=== PATIENT | male | born 1985 | race African-American/Black ===

== ENCOUNTER 2017-03-08 12:15 | Emergency (ER) | payer SELFPAY ==
[~2017-03-08] VITALS: Ht 172.7 cm; Wt 86.7 kg
[2017-03-08 13:37] LABS: CHLORIDE 106 mEq/L (99-109); SODIUM 139 mEq/L (136-147)
[2017-03-08 13:39] LABS: GLUCOSE 90 mg/dL (70-99)
[2017-03-08 13:40] LABS: ANION GAP 10 MEQ/L (2-14)
[2017-03-08 13:41] LABS: TOTAL BILIRUBIN 0.6 mg/dL (0.0-1.0)
[2017-03-08 13:42] LABS: SERUM ETHYL ALCOHOL < 10 mg/dL
[2017-03-08 13:43] LABS: ALKALINE PHOSPHATASE 72 IU/L (3-129); GFR ESTIMATE (CALCULATED) > 59 mL/min/
[2017-03-08 13:44] LABS: UREA NITROGEN (BUN) 5 mg/dL (9-23)
[2017-03-08 13:51] LABS: HEMATOCRIT 49.7 % (38.0-50.0); MCH 27.3 PG (29.0-34.0); MCHC 31.2 G/DL (30.0-36.0); MCV 87.7 FL (86-99); RBC DIS.WIDTH-CV 13.3 % (11.8-14.6); RBC DIS.WIDTH-SD 43.5 % (39-53); RED BLOOD COUNT 5.67 M/uL (4.00-5.50); WHITE BLOOD COUNT 10.8 K/uL (4.1-10.2)
[2017-03-08 14:05] LABS: ADD MIUA? NO; BILIRUBIN NEGATIVE; BLOOD NEGATIVE; COLOR YELLOW ((YELLOW)); GLUCOSE (STRIP) NEGATIVE; KETONES 5; LEUKOCYTES NEGATIVE; NITRITE NEGATIVE; PROTEIN (STRIP) 30; SPECIFIC GRAVITY 1.016 (1.000-1.030); UROBILINOGEN 0.2 MG/DL (0.2-1.0)
[2017-03-08 14:13] LABS: AMPHETAMINE NEGATIVE (500 ng/mL); COCAINE PRESUMPTIVE POSITIVE (150 ng/mL); METHAMPHETAMINE NEGATIVE (500 ng/mL); OPIATES (MORPHINE) NEGATIVE (100 ng/mL); PHENCYCLIDINE NEGATIVE (25 ng/mL); THC CANNABINOIDS PRESUMPTIVE POSITIVE (50 ng/mL)
[2017-03-08 14:14] LABS: BARBITURATES NEGATIVE (200 ng/mL); BENZODIAZEPINES PRESUMPTIVE POSITIVE (150 ng/mL); INTERNAL CONTROLS VALID? YES; METHADONE NEGATIVE (200 ng/mL); OXYCODONE NEGATIVE (100 ng/mL); PROPOXYPHENE NEGATIVE (300 ng/mL); TRICYCLIC ANTIDEPRESSANTS NEGATIVE (300 ng/mL)
[2017-03-08 14:15] LABS: ADD MEDTOX COMMENT Y
[2017-03-08] MEDS ORDERED: NARCAN4 MG NS (14:19)
[2017-03-08 14:30] LABS: MEAN PLAT.VOLUME 10.7 uM^3 (9.0-12.4); PLAT.SUFFICIENCY ADEQUATE; PLATELET COUNT 244 K/uL (156-360)
[2017-03-08 14:43] LABS: BENZODIAZEPINES, URINE SCREEN POSITIVE (200 ng/mL)
[2017-03-08 15:20] VITALS: BP 127/94
== END 2017-03-08 15:36 | disposition home or self-care (01) ==
LOC: EME 12:15
PROVIDERS: Emergency Medicine
DX: T50.901A Poisoning by unspecified drugs, medicaments and biological substances, accidental (unintentional), initial encounter (principal)
CPT/HCPCS: 80053; 81003; 84999; 85027; 99281; 99284; G0480; J7030

== ENCOUNTER 2017-04-11 20:49 | Emergency (ER) | payer OTHER ==
[~2017-04-11] VITALS: Ht 170.2 cm; Wt 84.6 kg
[~2017-04-11 20:49] MED LIST: NARCAN4 MG NS
[2017-04-12] MEDS ORDERED: VALIUM5 MG PO (00:21)
[2017-04-12] MEDS ORDERED: PERCOCET 5/31 TABLET PO (00:21)
[2017-04-12 00:34] VITALS: BP 132/63
== END 2017-04-12 00:34 | disposition home or self-care (01) ==
LOC: EME 20:49
DX: S39.012A Strain of muscle, fascia and tendon of lower back, initial encounter (principal); X50.9XXA Other and unspecified overexertion or strenuous movements or postures, initial encounter; Y93.H2 Activity, gardening and landscaping; Y99.0 Civilian activity done for income or pay
CPT/HCPCS: 72100; 99281; 99285; J1885

== ENCOUNTER 2017-11-04 12:52 | Emergency (ER) | payer SELFPAY ==
[~2017-11-04] VITALS: Ht 172.7 cm; Wt 84.7 kg
[~2017-11-04 12:52] MED LIST changes: +PERCOCET 5/31 TABLET PO; +VALIUM5 MG PO
[2017-11-04] MEDS ORDERED: ULTRAM50 MG PO (14:38)
[2017-11-04] MEDS ORDERED: PEN-VEE K,VEET500 MG PO (14:38)
[2017-11-04] MEDS ORDERED: MOTRIN800 MG PO (14:38)
[2017-11-04 14:49] VITALS: BP 148/65
== END 2017-11-04 14:50 | disposition home or self-care (01) ==
LOC: EME 12:52
DX: K02.9 Dental caries, unspecified (principal); S02.5XXA Fracture of tooth (traumatic), initial encounter for closed fracture; F17.200 Nicotine dependence, unspecified, uncomplicated
CPT/HCPCS: 99281; 99283

== ENCOUNTER 2018-01-01 19:02 | Emergency (ER) | payer SELFPAY ==
[~2018-01-01] VITALS: Ht 170.2 cm; Wt 79.9 kg
[~2018-01-01 19:02] MED LIST changes: +MOTRIN800 MG PO; +PEN-VEE K,VEET500 MG PO; +ULTRAM50 MG PO
[2018-01-01] MEDS ORDERED: NORCO 7.5/321 TABLET PO (21:53)
[2018-01-01] MEDS ORDERED: MOTRIN800 MG PO (21:53)
[2018-01-01 22:30] VITALS: BP 135/92
== END 2018-01-01 22:30 | disposition home or self-care (01) ==
LOC: EME 19:02
PROC: 2W3CX1Z Immobilization of Right Lower Arm using Splint (ICD-10-PCS; principal; 2018-01-01)
DX: S62.316A Displaced fracture of base of fifth metacarpal bone, right hand, initial encounter for closed fracture (principal); W22.09XA Striking against other stationary object, initial encounter
CPT/HCPCS: 73110; 73130; 99281; 99283; J3010